=== PATIENT | female | born 1965 | race Caucasian/White ===

== ENCOUNTER 2016-10-11 02:59 | Inpatient (IN) | payer OTHER ==
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
--- NOTE | ~2016-10-11 | CR72 ---
[facility] A Service of [facility] & [facility] RADIOLOGY TEXT RESULTS PATIENT: LUANA GARCIA LOCATION: [facility] 321- : 63 UNIT #: [id number] AGE: [address]: Jing Orellana MD SEX: F ORDER DR: [id number] [facility] [address] [place], [place] [address] [id number] I MR#: [id number] Acc #: [id number] NAME: LUANA GARCIA : 1965 SEX: F STUDY DATE/TIME: 10/11/2016 03:03 UNIT: [address] ROOM: [facility] STUDY DESCRIPTION: CR Chest Single View Portable Attending Physician: Jing Orellana M.D. Ordering Physician: Arlen Casiano A.P.R.N. Primary Care Physician: Jeremy Benz M.D. MEDICAL IMAGING REPORT This report is preliminary unless electronic signature is present EXAM Portable chest, 10/05 at 03:03 INDICATION Slurred speech upon awakening this evening. History of smoking. FINDINGS AP portable chest is compared with 06/01/2016. The lungs are emphysematous but clear. Cardiac and mediastinal contours are normal. No pneumothorax. IMPRESSION Emphysema. No active disease. Dictated by... Kris Goldberg Jr., M.D. THIS IS AN ELECTRONICALLY VERIFIED REPORT Kris Goldberg Jr., M.D. at 10/11/2016 10:02 PM STIVEN/padmini TD: 10/11/2016 08:12 JOB #: [id number] MEDICAL IMAGING REPORT COPY
--- NOTE | ~2016-10-11 | A ---
[facility] Therapy DATE: 10/11/16 Patient: LUANA GARCIA Physician: CARMEN Address: [address] Room/Bed: [address] [place] [address], Zip: [place] [address] Admit Date: 10/11/16 Date of : [birth year] Height: 5 7 Weight: 98 44.45 NUTRITIONAL ASSESSMENT: REASON: Low BMI 51 yo female admitted for slurred speech, EtOH intoxication, hyponatremia PMH: HTN, BELKYS, COPD, GERD, esophageal stricture, pancreatitis, depression, ORIF, gastritis, Casillas's esophagus, EtOH abuse Anthropometrics: Ht: 67" Wt: 44.45 kg BMI: 15.3 IBW: 61.4 kg, 72% IBW Labs: Na+ 125 K+ 3.4 Cl- 88 Ca++ 6.3 AST 72 Amylase 193 Lipase 118 Meds: NaCl, thiamine, protonix, D5%, KCl, sodium bicarbonate, MVI I/O & Bowel function: none available Skin Integrity: information not available Edema: information not available Estimated Nutrition Needs: Increased due to low body weight Diet: Clear liquid Assessment: Chart reviewed, events noted. Pt admitted for slurred speech with elevated alcohol level upon admission. RD seeing pt for low BMI. RD spoke with the pt's RN, who reports that the pt was intoxicated upon admission and apparently failed a swallow evaluation. Per SEED COLLECTOR note in chart, the pt has a h/o esophageal dysphagia and SEED COLLECTOR deferred to GI consult due to this. Per GI note, the pt consumed alcohol last night, and feels like she has a "golfball" stuck. No n/v noted. GI ordered a clear liquid diet, and the pt will have an EGD tomorrow. RD spoke with the pt at bedside. Pt reports no PO intake x 2 weeks due to not being able to keep food down. Pt states that she has a good appetite, but cannot eat due to GI issues. Pt confirms that she has lost weight. Per previous weights in [employer], the pt weighed ~110# in May 2016, indicating ~12# weight loss since then. RD explained that diet advancement will depend upon EGD results. Pt voiced understand. Pt declined Ensure clear supplements, stating that she cannot drink juice. Of note, the pt has elevated amylase and lipase with a h/o pancreatitis. Dx: Inadequate oral intake RT dysphagia, GI issues AEB GI consult, clear liquid diet, SEED COLLECTOR evaluation, no oral intake x 2 weeks, BMI 15.3, 72% IBW. Intervention: [facility] Therapy DATE: 10/11/16 Patient: LUANA GARCIA Physician: CARMEN Address: [address] [place] [address] Room/Bed: [address] [place] [address], Zip: [place] [address] Admit Date: 10/11/16 Date of : 61 Height: 5 7 Weight: 98 44.45 1. Clear liquid diet 2. GI 3. SEED COLLECTOR Monitoring, Evaluation and Goals: 1. Oral intake; tolerate >50-75% of meals 2. Labs; WNL: amylase, lipase, electrolytes, AST 3. Weight; gradual increase in weight, prevent weight loss 4. GI; promote regular GI function Recommendations: 1. Continue clear liquid diet (per GI) as tolerated. 2. SEED COLLECTOR evaluation as deemed appropriate by GI. 3. Once medically feasible pending EGD results, advance the pt to a low fat diet as tolerated. ?Pancreatitis 4. Continue MVI with minerals + thiamine due to EtOH abuse. Pt is at mild-moderate nutritional risk. RD will follow hospital course. Respectfully, LUANA NEGRETE, ANGELITA, LD [employer] [facility] cc: client file
--- NOTE | ~2016-10-11 | OR ---
Unit #: [id number] #: [id number] Patient: LUANA GARCIA [id number] [address] [address] [id number] I MR#: [id number] NAME: LUANA GARCIA ROOM: 321 Date of Procedure: 10/12/2016 Admission Date: 10/11/2016 Surgeon: Jonathan Su M.D. : 1965 Attending Physician: Jing Orellana M.D. Primary Care Physician: Jeremy Benz M.D. OPERATIVE REPORT JOB NOTE: CC: PRIMARY CARE PHYSICIAN PROCEDURE PERFORMED Esophagogastroduodenoscopy with biopsies. INDICATIONS FOR PROCEDURE The patient with significant dysphagia, severe anemia, history of heavy alcoholism, undergoing evaluation with upper endoscopy. MEDICATIONS Monitored anesthesia. POSTOPERATIVE FINDINGS 1. Distal third of the esophagus shows tight stricture with circumferential ulceration. Minimal bleeding was seen as the scope passed through. 2. Mild gastritis. Biopsies taken. 3. Normal duodenum and distal duodenum. PLAN Aggressive PPI therapy. EGD with dilation after healing with aggressive PPI therapy. DESCRIPTION OF PROCEDURE The patient was explained of the procedure, risks, and benefits along with the risks and benefits of anesthesia. She was brought to the endoscopy room. Propofol anesthesia was given. Bite block was placed. The scope was passed down the mouth into the esophagus, stomach, duodenum, and distal duodenum. Findings as described. Biopsies taken in the antrum and body. Gently, the scope was pulled out. She tolerated it well. Dictated by... Montserrat Maki/neo TD: 10/12/2016 22:02 JOB #: [id number] Unit #: [id number] #: [id number] Patient: LUANA GARCIA OPERATIVE REPORT X Jonathan Su MD X PROCEDURE OPERATIVE NOTE
--- NOTE | ~2016-10-11 | EKG ---
PATIENT: LUANA GARCIA UNIT #: [id number] Ventricular Rate: 76 BPM Atrial Rate: 76 BPM P-R Interval: 166 ms QRS Duration: 80 ms Q-T Interval: 444 ms QTC Calculation(Bezet): 499 ms P Ilion: 102 degrees Calculated R Ilion: -9 degrees Calculated T Ilion: 61 degrees Diagnosis Line: Normal sinus rhythm Diagnosis Line: Cannot rule out Septal infarct (cited on or before Diagnosis Line: 01-JUN-2016) Baseline wander Nonspecific ST Diagnosis Line: abnormality Diagnosis Line: Borderline ECG Diagnosis Line: When compared with ECG of 01-JUN-2016 16:15, Diagnosis Line: Nonspecific T wave abnormality now evident in Diagnosis Line: Inferior leads Diagnosis Line: QT has lengthened Diagnosis Line: Confirmed by MANJU RODRÍGUEZ MD ([id number]) on 10/11/2016 Diagnosis Line: 5:45:45 PM INTERPRETING MD: MARCOS CAPPS
--- NOTE | ~2016-10-11 | EKG ---
PATIENT: LUANA GARCIA UNIT #: [id number] Ventricular Rate: 90 BPM Atrial Rate: 91 BPM QRS Duration: 72 ms Q-T Interval: 368 ms QTC Calculation(Bezet): 450 ms Calculated R [place]: -50 degrees Calculated T [place]: 53 degrees Diagnosis Line: Normal sinus rhythm Diagnosis Line: Left axis deviation Diagnosis Line: Septal infarct (cited on or before 01-JUN-2016) Diagnosis Line: Abnormal ECG Diagnosis Line: When compared with ECG of 11-OCT-2016 02:43, Diagnosis Line: Current undetermined rhythm precludes rhythm Diagnosis Line: comparison, needs review Diagnosis Line: QRS axis Shifted left Diagnosis Line: Nonspecific T wave abnormality no longer evident Diagnosis Line: in Inferior leads Diagnosis Line: Confirmed by HARRY PINO MD ([id number]) on Diagnosis Line: 10/15/2016 12:00:20 AM INTERPRETING MD: ODETTE CAPPS
--- NOTE | ~2016-10-11 | DS ---
Unit #: [id number] #: [id number] Patient: LUANA GARCIA [id number] [address] [address] [id number] I MR#: [id number] NAME: LUANA GARCIA ROOM: 321 Age: 51 Sex: F Admission Date: 10/11/2016 : 1965 Discharge Date: 10/13/2016 Attending Physician: Jing Orellana M.D. Primary Care Physician: Jeremy Benz M.D. DISCHARGE SUMMARY DISCHARGE DIAGNOSES 1. Mild upper gastrointestinal bleed secondary to number 2. 2. Severe ulcerative esophagitis with associated esophageal stricture. 3. Hypovolemic hyponatremia, resolved. 4. Mild acute blood loss anemia. Discharge hemoglobin 8. 5. Severe hypocalcemia. 6. Hypomagnesemia. 7. Hypophosphatemia. 8. Acute alcohol intoxication without evidence of withdrawal. 9. Thrombocytopenia. 10. Mild leukopenia. Discharge white blood cell count 3.9. 11. Severe protein malnutrition. 12. Underweight. 13. Chronic obstructive pulmonary disease. 14. Tobaccoism. 15. Prior history of hypertension. Blood pressure stable here off of antihypertensive medication. 16. Severe metabolic acidosis secondary to alcoholic ketosis and starvation ketosis. FENDER REPAIRER Dr. Su, gastroenterology. PROCEDURE EGD on October 12, 2016 with severe ulcerative esophagitis and stricture. Minimal amount of bleeding noted. Biopsy is currently pending. DIAGNOSTIC STUDIES IMAGING: CT of the head without contrast on October 11, 2016 with no acute findings. Atrophy is noted. Chest x-ray on October 11, 2016 with changes of emphysema. CLINICAL HISTORY AND HOSPITAL COURSE Ms. Garcia is a 51-year-old female with a history of severe esophagitis and prior esophageal stricture requiring dilatation who presented to the emergency department unable to eat and complaining of abdominal pain. She was also having slurred speech upon presentation. Please refer to H and P for further details. In the emergency department the patient was found to be acutely intoxicated with an alcohol level of 395. She also had several electrolyte abnormalities and a severe metabolic acidosis secondary to a combination of alcoholic ketosis and starvation ketosis. She was placed Unit #: [id number] #: [id number] Patient: LUANA GARCIA on IV fluids containing bicarbonate, made NPO and subsequently admitted. Dr. Su was consulted. The patient subsequently underwent EGD with findings as noted. She was placed on PPI drip following the procedure and today is eating without difficulty following her dilatation. I will note her hemoglobin did drop rather significantly since admission. Her admitting hemoglobin was 12.3, and on day of discharge hemoglobin is 8. I suspect this drop is secondary to both some significant dehydration and subsequent dilution, in addition to some upper GI bleed. However, her hemoglobin overall is relatively stable over the last 48 hours. Will placed on PPI therapy b.i.d. and follow up with Dr. Su as an outpatient. Due to the patient's poor nutritional status, she has had significant electrolyte abnormalities, including recurrent hypocalcemia, hypomagnesemia and hypophosphatemia. I anticipate these will improve as oral intake improves, but I am going to place her on some supplementation upon discharge. She has not had any arrhythmia secondary to her electrolyte abnormalities. The patient does have mild pancytopenia on day of discharge, and this is likely a combination of her alcohol use and her current illness. This can be followed up as an outpatient. I have discussed tobacco and alcohol cessation with the patient given these are contributing to her underlying significant esophagitis. DISCHARGE CONDITION Stable. DISCHARGE STATUS Discharge to home. DISCHARGE MEDICATIONS 1. ProAir RespiClick 2 puffs q.4 hours p.r.n. shortness of breath. 2. Pred Forte 1 drop to right eye at bedtime. 3. Atropine 1% ophthalmic solution 1 drop to right eye at bedtime. 4. Hydroxyzine 50 mg at bedtime. 5. Dulera 200/5 mcg 2 puffs b.i.d. 6. Protonix 40 mg b.i.d. (1 refill given). 7. Magnesium oxide 400 mg p.o. b.i.d. for 15 days. 8. Citracal plus vitamin D 1 tablet p.o. b.i.d. This can be purchased over the counter. 9. I have held the patient's lisinopril given blood pressure here has been in the one-teens to mid 120s off of antihypertensive medications. DISCHARGE INSTRUCTIONS Patient was instructed to refrain from any further alcohol use. She should refrain from tobacco use. She can follow a regular diet and needs to increase her caloric intake. FOLLOW-UP 1. Patient will follow up with Dr. Su in approximately 2-3 months for repeat EGD. 2. She can follow up with her primary care provider, Dr. Benz, in approximately 2 weeks and repeat CBC, BMP and magnesium levels at that time. NOTE: Time spent on discharge - 34 minutes. Unit #: [id number] #: [id number] Patient: LUANA GARCIA Dictated by... Montserrat Khan/sebastian TD: 10/15/2016 08:37 JOB #: [id number] DISCHARGE SUMMARY X Jing Orellana MD X DISCHARGE SUMMARY
--- NOTE | ~2016-10-11 | CO ---
Unit #: [id number] #: [id number] Patient: LUANA GARCIA [id number] [address] [address] [id number] I MR#: [id number] NAME: LUANA GARCIA ROOM: 321 Age: 51 Sex: F Admission Date: 10/11/2016 : 1965 Attending Physician: Jing Orellana M.D. Primary Care Physician: Jeremy Benz M.D. CONSULTATION REPORT REASON FOR CONSULTATION Dysphagia. HISTORY OF PRESENT ILLNESS The patient was actually brought to ER after having several drinks of bourbon as they were watching October basketball with her boyfriend. She was found in the ER to be hyponatremic as well as experiencing dysphagia, worsening over the past several weeks. At this time, she denies any abdominal pain, nausea, vomiting, heartburn, chest pain. PAST MEDICAL HISTORY 1. History of alcohol abuse with pancreatitis. 2. COPD. 3. History of GERD with esophageal stricture. She had three EGDs in 2016 revealing Casillas's esophageal ulcers as well as strictures requiring dilation. 4. . 5. Tonsillectomy. 6. Right eye surgery. 7. Jaw surgery. 8. Right oophorectomy. 9. ORIF of the left wrist and right ankle. ALLERGIES Penicillin. HOME MEDICATIONS 1. Protonix. 2. Prinivil. 3. Atarax. 4. ProAir. 5. Dulera. 6. Atropine, one drop in the eye. 7. Prednisolone, one drop in the right eye. FAMILY HISTORY Notable for coronary artery disease. SOCIAL HISTORY The patient drinks bourbon. She only drinks when there is a special occasion and not on a daily basis. She smokes about a half pack of cigarettes daily and lives with boyfriend. REVIEW OF SYSTEMS Unit #: [id number] #: [id number] Patient: LUANA GARCIA A complete ten point review of systems was completed and negative except for that mentioned in HPI. PHYSICAL EXAMINATION GENERAL: The patient is a pleasant 51-year-old male, currently in no acute distress. VITAL SIGNS: Temperature is 98.3, pulse is 100, respirations 16, blood pressure 119/81. HEENT: PERRLA. NECK: Supple. CARDIAC: S1, S2. LUNGS: Clear to auscultation. ABDOMEN: Soft, rounded, nontender, nondistended. Positive bowel sounds. NEUROLOGICAL: The patient is alert and oriented x3. DIAGNOSTIC STUDIES LABORATORY DATE: Chemistry - sodium is 125, potassium 3.4, white count 6.6, hemoglobin 10.5, hematocrit 30.2, platelets are 143. Alcohol on admission was 395. Tox was negative. ASSESSMENT AND PLAN 1. Dysphagia, history of esophageal stricture: PPI therapy for now. Will plan EGD in the morning with possible dilation due to previous stricture. 2. Alcohol intoxication on arrival. 3. Chronic obstructive pulmonary disease. Thank you for this interesting consult. We will continue to follow. Dictated by... Shiva De La RosaPDameonRDameonN. for Jonathan Su M.D. JOSE/nell TD: 10/12/2016 08:09 JOB #: [id number] CONSULTATION REPORT X X CONSULTATION REPORT
[~2016-10-11 02:59] MED LIST: ALB/IPRATROPIUM/1 EA INH; ALBUTEROL17 GM; ALBUTEROL17 GM INH; ASPIRIN PO; ASPIRIN325 M1 PO; ASPIRIN81 M1 PO; ATIVAN PO; ATROPINE SULFAT15 ML OD; DARVOCET-N 1001 TAB PO; DOXYCYCLINE HY100 M1 PO; DULERA 200 MCG/13 GM INH; FOLIC ACID PO; HYDROXYZINE HCL50 MG PO; IBUPROFEN IB200 M1 PO; IBUPROFEN800 MG PO; KETOPROFEN PO; LIBRIUM PO; LISINOPRIL20 MG PO; LORTAB 10/500 T1 TAB PO; LORTAB 7.5-5001 TAB PO; MULTIVITAMIN W-1 TAB PO; MULTIVITAMIN1 UDCAP PO; NON-ASPIRIN PA325 M1 PO; OMEPRAZOLE20 M1 PO; OXYGEN INH; PANTOPRAZOLE SO40 MG PO; PEPCID AC20 MG PO; PHENERGAN25 MG PO; PREDNISOLONE SO10 ML OD; PRILOSEC PO; PRINIVIL20 M1 PO; PROAIR HFA8.5 GM INH; PROAIR RESPICL90 MCG INH; PROTONIX PO; THIAMINE HCL100 MG PO; TRAVATAN2.5 ML OD; ULTRAM PO; VICODIN 5/1 TAB 5/50 PO; ZOLOFT100 MG PO
[2016-10-11 03:06] LABS: URINE SOURCE CLEAN CATCH
[2016-10-11 03:11] LABS: POC - CKMB 2.3 ng/mL (0.0-7.9); POC - TROPONIN <0.05 ng/mL (<=0.05)
[2016-10-11 03:11] LABS: BASOPHIL% 0.5 % (0-2.5); DIFF IND NO; EOSINOPHIL% 0.1 % (0.0-7.0); HEMATOCRIT 37.3 % (35.0-45.0); HEMOGLOBIN 12.3 gm/dL (12.0-16.0); LYMPHOCYTE# 0.7 X10e3 (1.0-3.5); LYMPHOCYTE% 10.7 % (17.0-45.0); MEAN CELL VOLUME 102.4 FL (83-96); MEAN CORPUSCULAR HEMOGLOBIN 33.9 PG (28-34); MEAN CORPUSCULAR HGB CONC 33.1 g/dL (30-36); MEAN PLATELET VOLUME 10.1 FL (6.5-11.5); MONOCYTE# 0.3 X10e3 (0-1.0); MONOCYTE% 4.8 % (3.0-12.0); NEUTROPHIL# 5.3 X10e3 (1.5-7.1); NEUTROPHIL% 83.9 % (40-75); PLATELET COUNT 159 X10e3 (140-420); RED BLOOD COUNT 3.64 X10e (3.90-5.30); RED CELL DISTRIBUTION WIDTH 14.7 % (11.0-15.5); WHITE BLOOD COUNT 6.4 X10e3 (4.0-10.5)
[2016-10-11 03:13] LABS: URINE APPEARANCE CLEAR; URINE BILIRUBIN NEG (NEG); URINE BLOOD NEG (NEG); URINE COLOR YELLOW; URINE GLUCOSE NEG (NEG); URINE KETONE 2+ (NEG); URINE LEUKOCYTE ESTERASE NEG (NEG); URINE NITRATE NEG (NEG); URINE PROTEIN NEG (NEG); URINE SPECIFIC GRAVITY 1.012 (1.003-1.035)
[2016-10-11 03:16] LABS: CULTURE INDICATED? NO
[2016-10-11 03:23] LABS: AMPHETAMINE NEG (NEG); BARBITURATES NEG (NEG); BENZODIAZEPINES NEG (NEG); COCAINE NEG (NEG); MARIJUANA NEG (NEG); OPIATES NEG (NEG); TRICYCLIC ANTIDEPRESSANTS NEG (NEG); U METHADONE NEG (NEG)
[2016-10-11 03:52] LABS: INR 1.1; PARTIAL THROMBOPLASTIN TIME 31.5 SECONDS (23.5-31.3); PROTHROMBIN TIME (PATIENT) 11.4 SECONDS (9.6-11.5)
[2016-10-11 04:00] LABS: BILIRUBIN, DIRECT 0.2 mg/dL (0.0-0.2); BILIRUBIN,INDIRECT 0.8 mg/dL (0.0-0.9); BUN/CREATININE RATIO 21.81; CALCIUM SERUM 6.6 mg/dL (8.4-10.2); CREATININE SERUM 1.1 mg/dL (0.6-1.4); GLOM FILT RATE Estimated 55.2 mL/min (>60); POTASSIUM 3.6 mmol/L (3.5-5.1); PROTEIN TOTAL SERUM 7.8 g/dL (6.0-8.3)
[2016-10-11 04:47] LABS: ARTERIAL BLD GAS O2 SATURATION 95.1 % (90.0-100.0); ARTERIAL BLOOD GAS CARBOXY HB 0.6 %sat (0.0-9.0); ARTERIAL BLOOD GAS HCO3 9.3 mmol/L; ARTERIAL BLOOD GAS MET HB 1.2 %sat (0.0-2.0); ARTERIAL BLOOD GAS PO2 97.8 mmHg (80.0-100); ARTERIAL BLOOD GAS pH 7.389 (7.350-7.450)
[2016-10-11 04:49] LABS: ARTERIAL BLOOD GAS ART SITE RIGHT BRACHIAL; ARTERIAL BLOOD GAS PCO2 15.4 mmHg (35.0-45.0); ARTERIAL DRAW? YES
[2016-10-11 05:05] LABS: POC - CKMB 3.6 ng/mL (0.0-7.9); POC - TROPONIN <0.05 ng/mL (<=0.05)
[2016-10-11 12:21] LABS: BASOPHIL% 0.7 % (0-2.5); EOSINOPHIL% 0.4 % (0.0-7.0); HEMATOCRIT 30.2 % (35.0-45.0); LYMPHOCYTE# 1.6 X10e3 (1.0-3.5); LYMPHOCYTE% 24.4 % (17.0-45.0); MEAN CORPUSCULAR HEMOGLOBIN 34.5 PG (28-34); MEAN CORPUSCULAR HGB CONC 34.9 g/dL (30-36); MEAN PLATELET VOLUME 9.7 FL (6.5-11.5); MONOCYTE# 0.4 X10e3 (0-1.0); MONOCYTE% 5.8 % (3.0-12.0); NEUTROPHIL# 4.5 X10e3 (1.5-7.1); NEUTROPHIL% 68.7 % (40-75); PLATELET COUNT 143 X10e3 (140-420); RED BLOOD COUNT 3.04 X10e (3.90-5.30); RED CELL DISTRIBUTION WIDTH 14.6 % (11.0-15.5); WHITE BLOOD COUNT 6.6 X10e3 (4.0-10.5)
[2016-10-11 12:25] LABS: MEAN CELL VOLUME 99.1 FL (83-96)
[2016-10-11 12:27] LABS: HEMOGLOBIN 10.5 gm/dL (12.0-16.0)
[2016-10-11 12:28] LABS: DIFF IND NO
[2016-10-11 13:00] LABS: BLOOD UREA NITROGEN 19 mg/dL (9-23); BUN/CREATININE RATIO 21.11; CALCIUM SERUM 6.3 mg/dL (8.4-10.2); CARBON DIOXIDE 21 mmol/L (22-31); CHLORIDE 88 mmol/L (100-111); CREATININE SERUM 0.9 mg/dL (0.6-1.4); GLOM FILT RATE Estimated ABOVE60 mL/min (>60); GLUCOSE FASTING 92 mg/dL (70-110); POTASSIUM 3.4 mmol/L (3.5-5.1)
[2016-10-11 13:01] LABS: SODIUM 125 mmol/L (135-145)
[2016-10-11 19:59] LABS: BLOOD UREA NITROGEN 17 mg/dL (9-23); BUN/CREATININE RATIO 24.28; CALCIUM SERUM 6.8 mg/dL (8.4-10.2); CARBON DIOXIDE 24 mmol/L (22-31); CHLORIDE 89 mmol/L (100-111); CREATININE SERUM 0.7 mg/dL (0.6-1.4); GLOM FILT RATE Estimated ABOVE60 mL/min (>60); GLUCOSE FASTING 91 mg/dL (70-110); POTASSIUM 3.5 mmol/L (3.5-5.1); SODIUM 126 mmol/L (135-145)
[2016-10-11 20:03] LABS: MAGNESIUM 0.4 mg/dL (1.6-3.0)
[2016-10-12 01:47] LABS: ALBUMIN SERUM 3.1 g/dL (3.5-5.0); ALKALINE PHOSPHATASE 55 U/L (32-92); ALT (SGPT) 16 U/L (10-40); AST (SGOT) 29 U/L (10-42); BILIRUBIN,TOTAL 1.3 mg/dL (0.2-2.0); BLOOD UREA NITROGEN 15 mg/dL (9-23); BUN/CREATININE RATIO 18.75; CALCIUM SERUM 6.7 mg/dL (8.4-10.2); CARBON DIOXIDE 26 mmol/L (22-31); CHLORIDE 91 mmol/L (100-111); CREATININE SERUM 0.8 mg/dL (0.6-1.4); GLOM FILT RATE Estimated ABOVE60 mL/min (>60); GLUCOSE FASTING 123 mg/dL (70-110); POTASSIUM 3.1 mmol/L (3.5-5.1); PROTEIN TOTAL SERUM 5.9 g/dL (6.0-8.3)
[2016-10-12 01:53] LABS: SODIUM 125 mmol/L (135-145)
[2016-10-12 06:26] LABS: HEMATOCRIT 24.8 % (35.0-45.0); HEMOGLOBIN 8.6 gm/dL (12.0-16.0); MEAN CELL VOLUME 100.6 FL (83-96); MEAN CORPUSCULAR HGB CONC 34.8 g/dL (30-36); MEAN PLATELET VOLUME 10.1 FL (6.5-11.5); RED BLOOD COUNT 2.46 X10e (3.90-5.30); RED CELL DISTRIBUTION WIDTH 14.8 % (11.0-15.5); WHITE BLOOD COUNT 4.4 X10e3 (4.0-10.5)
[2016-10-12 06:51] LABS: ALBUMIN SERUM 2.9 g/dL (3.5-5.0); ALKALINE PHOSPHATASE 55 U/L (32-92); ALT (SGPT) 15 U/L (10-40); AST (SGOT) 27 U/L (10-42); BILIRUBIN,TOTAL 0.6 mg/dL (0.2-2.0); BLOOD UREA NITROGEN 13 mg/dL (9-23); BUN/CREATININE RATIO 16.25; CALCIUM SERUM 6.7 mg/dL (8.4-10.2); CARBON DIOXIDE 25 mmol/L (22-31); CHLORIDE 92 mmol/L (100-111); CREATININE SERUM 0.8 mg/dL (0.6-1.4); GLOM FILT RATE Estimated ABOVE60 mL/min (>60); GLUCOSE FASTING 113 mg/dL (70-110); MAGNESIUM 1.8 mg/dL (1.6-3.0); POTASSIUM 3.7 mmol/L (3.5-5.1); PROTEIN TOTAL SERUM 5.4 g/dL (6.0-8.3); SODIUM 128 mmol/L (135-145)
[2016-10-12 11:46] LABS: MAGNESIUM 1.5 mg/dL (1.6-3.0); POTASSIUM 4.2 mmol/L (3.5-5.1)
[2016-10-12 17:41] LABS: IRON SERUM 41 ug/dL (28-170); TOTAL IRON BINDING CAPACITY 163 ug/dL (269-535); TRANSFERRIN 116 mg/dL (192-382); TRANSFERRIN SATURATION 25 % (20-50)
[2016-10-13 05:59] LABS: HEMATOCRIT 24.1 % (35.0-45.0); MEAN CELL VOLUME 101.6 FL (83-96); MEAN CORPUSCULAR HEMOGLOBIN 33.8 PG (28-34); MEAN CORPUSCULAR HGB CONC 33.2 g/dL (30-36); MEAN PLATELET VOLUME 10.2 FL (6.5-11.5); RED BLOOD COUNT 2.37 X10e (3.90-5.30); RED CELL DISTRIBUTION WIDTH 14.7 % (11.0-15.5); WHITE BLOOD COUNT 3.9 X10e3 (4.0-10.5)
[2016-10-13 06:15] LABS: ALBUMIN SERUM 2.7 g/dL (3.5-5.0); ALKALINE PHOSPHATASE 54 U/L (32-92); ALT (SGPT) 13 U/L (10-40); AST (SGOT) 24 U/L (10-42); BILIRUBIN,TOTAL 0.8 mg/dL (0.2-2.0); BLOOD UREA NITROGEN 9 mg/dL (9-23); BUN/CREATININE RATIO 12.85; CALCIUM SERUM 7.3 mg/dL (8.4-10.2); CARBON DIOXIDE 24 mmol/L (22-31); CHLORIDE 100 mmol/L (100-111); CREATININE SERUM 0.7 mg/dL (0.6-1.4); GLOM FILT RATE Estimated ABOVE60 mL/min (>60); GLUCOSE FASTING 86 mg/dL (70-110); PHOSPHOROUS 2.7 mg/dL (2.5-4.6); POTASSIUM 4.3 mmol/L (3.5-5.1); PROTEIN TOTAL SERUM 5.1 g/dL (6.0-8.3); SODIUM 130 mmol/L (135-145)
[2016-10-13] MEDS ORDERED: MAGNESIUM400 M1 (12:15)
[2016-10-13] MEDS ORDERED: PRED FORTE1 ML OD (12:16)
[2016-10-13] MEDS ORDERED: ISOPTO ATROPINE5 ML OD (12:17)
[2016-10-13] MEDS ORDERED: CITRACAL-VIT D1 EAC1 PO (12:21)
[2016-10-18 09:30] LABS: CALCIUM (PTHINTACT) 7.4 mg/dL (8.6-10.4)
== END 2016-10-13 13:02 | disposition home or self-care (01) | DRG 640 ==
LOC: CED 02:59 → CEDOF 04:50 → C3A PCU 08:11
PROVIDERS: Internal Medicine; Nurse Practitioner
PROC: 0DB78ZX Excision of Stomach, Pylorus, Via Natural or Artificial Opening Endoscopic, Diagnostic (ICD-10-PCS; principal; 2016-10-12 15:35)
DX: E87.1 Hypo-osmolality and hyponatremia (principal); K22.11 Ulcer of esophagus with bleeding; E86.0 Dehydration; E43 Unspecified severe protein-calorie malnutrition; E87.2 Acidosis; E88.89 Other specified metabolic disorders; D62 Acute posthemorrhagic anemia; D69.59 Other secondary thrombocytopenia; Z68.1 Body mass index [BMI] 19.9 or less, adult; Z88.0 Allergy status to penicillin; I10 Essential (primary) hypertension; J44.9 Chronic obstructive pulmonary disease, unspecified; K21.9 Gastro-esophageal reflux disease without esophagitis; Z82.49 Family history of ischemic heart disease and other diseases of the circulatory system; Y90.8 Blood alcohol level of 240 mg/100 ml or more; H54.41 Blindness, right eye, normal vision left eye; F17.210 Nicotine dependence, cigarettes, uncomplicated; K22.2 Esophageal obstruction; E83.51 Hypocalcemia; E83.42 Hypomagnesemia; E83.39 Other disorders of phosphorus metabolism; F10.229 Alcohol dependence with intoxication, unspecified; K29.70 Gastritis, unspecified, without bleeding
CPT/HCPCS: 36415; 36600; 70450; 71010; 80048; 80053; 80076; 80307; 81003; 82140; 82150; 82310; 82330; 82553; 82607; 82803; 82947; 83540; 83550; 83690; 83735; 83930; 83970; 84100; 84132; 84134; 84484; 85025; 85027; 85610; 85730; 88305; 88312; 93005; 94640; 94760; 99285; C9113; G0480; J0360; J0610; J2270; J3411; J3475; J3480

== ENCOUNTER → 2016-11-04 | Outpatient (CLI) | payer OTHER ==
[~2016-11-04] MED LIST changes: +ATROPINE 0.01%-10 ML OD; +CALCIUM 500 +1 EAC3 PO; +CITRACAL-VIT D1 EAC1 PO; +FOLIC ACID1 MG PO; +INDOMETHACIN50 MG PO; +ISOPTO ATROPINE5 ML OD; +LEVAQUIN PO; +MAG-OX 400400 M1 PO; +MAGNESIUM400 M1; +MULTIVITAMINS1 EAC2 PO; +POTASSIUM PHOS MC; +PRED FORTE1 ML OD; +PREDNISONE10 M1
--- NOTE | ~2016-11-04 | CR21 ---
[facility] A Service of [facility] RADIOLOGY TEXT RESULTS PATIENT: LUANA GARCIA LOCATION: [facility] : [birth year] UNIT #: [id number] AGE: [address]: Liberty Starr MD SEX: F ORDER DR: [id number] [facility] [address] [place], [place] [address] [id number] O MR#: [id number] Acc #: [id number] NAME: LUANA GARCIA : 1965 SEX: F STUDY DATE/TIME: 11/04/2016 12:25 UNIT: [facility] ROOM: STUDY DESCRIPTION: CR Ankle Min 3 Views Rt Attending Physician: Liberty Starr M.D. Ordering Physician: Liberty Starr M.D. Primary Care Physician: Jeremy Benz M.D. MEDICAL IMAGING REPORT This report is preliminary unless electronic signature is present EXAM Right ankle INDICATIONS Right ankle pain. Prior right ankle fracture. FINDINGS 3 views of the right ankle compared to 08/25/2016. The medial plate and multiple screws transfixing the comminuted ankle fracture are unchanged in appearance. The fracture plane is less visible on today's exam, indicating some interval healing. There is some periosteal reaction around the fracture. There is some bridging callus across the distal fibular fracture. There is generalized osteopenia at the ankle. IMPRESSION Interval healing of the comminuted distal tibia and fibular fractures. Dictated by... Miguel Angel Farley M.D. THIS IS AN ELECTRONICALLY VERIFIED REPORT Miguel Angel Farley M.D. at 11/05/2016 2:12 PM Roni/yaima TD: 11/04/2016 19:20 JOB #: [id number] MEDICAL IMAGING REPORT Page 1 of 1 COPY
== END | disposition home or self-care (01) ==
LOC: CRAD 12:15
DX: M25.571 Pain in right ankle and joints of right foot (principal); S82.301D Unspecified fracture of lower end of right tibia, subsequent encounter for closed fracture with routine healing; S82.831D Other fracture of upper and lower end of right fibula, subsequent encounter for closed fracture with routine healing
CPT/HCPCS: 73610

== ENCOUNTER 2016-12-22 11:13 | Inpatient (IN) | payer OTHER ==
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
--- NOTE | ~2016-12-22 | DS ---
Unit #: [id number] #: [id number] Patient: LUANA GARCIA [id number] [address] [address] [id number] I MR#: [id number] NAME: LUANA GARCIA ROOM: 330 Age: 51 Sex: F Admission Date: 12/22/2016 : 1965 Discharge Date: 12/25/2016 Attending Physician: Jing Orellana M.D. Primary Care Physician: Jeremy Benz M.D. DISCHARGE SUMMARY PRINCIPAL DIAGNOSES 1. Hypotension secondary to dehydration in combination with chronic antihypertensive medication. 2. Severe starvation ketosis. 3. Acute kidney injury, prerenal, now resolved. Discharge creatinine 0.8. 4. Severe hypocalcemia. 5. Severe hypomagnesemia. 6. Severe hypophosphatemia. 7. Hypokalemia, now resolved. 8. Severe protein malnutrition. 9. Chronic alcohol abuse without evidence of withdrawal. 10. Macrocytic anemia, secondary to chronic alcohol abuse in combination with folate deficiency. Vitamin B12 level 584. 11. Acute hypoxic respiratory failure, now resolved. 12. Acute exacerbation of chronic obstructive pulmonary disease. 13. Underweight. 14. Mild memory loss, question alcohol induced. 15. Ulcerative esophagitis. 16. Tobaccoism. CONSULTANTS Dr. Stuart, pulmonology. DIAGNOSTIC DATA IMAGING: Chest x-ray on 12/22/2016 with no acute findings[address] CT of the head without contrast on 12/22/2016 with metallic streak artifact from shrapnel fragment right frontal region. Chest x-ray on 12/23/2016 with no acute findings. CLINICAL HISTORY/HOSPITAL COURSE Ms. Garcia is a 51-year-old female brought to the emergency department by family after not eating and drinking for approximately 4 days. The patient was also increasingly confused. In the emergency department the patient was found to be mildly hypoxic. She was also acidotic with a significant high anion gap metabolic acidosis on BMP. She was also hypotensive. The patient was subsequently admitted. Dr. Stuart was consulted upon admission to the ICU. The patient was maintained on oxygen in addition to IV fluids and discontinuation of her lisinopril. Fortunately, the patient's blood pressure improved rather rapidly. Blood pressures now are running in the 110s and I do not feel Unit #: [id number] #: [id number] Patient: LUANA GARCIA she needs lisinopril at baseline. We are going to discontinue this. In regard to the patient's severe ketosis, I think this is likely starvation induced. Her alcohol level was normal upon presentation and she had no evidence of hyperglycemia, at least initially upon presentation. On D5 fluids her anion gap has resolved. In regard to the patient's mild hypoxia, this is felt to be secondary to a chronic obstructive pulmonary disease exacerbation. The patient was placed on IV steroids and antibiotics. She has now been transitioned to oral steroids and oral antibiotics. The patient was also found to have an e-coli urinary tract infection and we will complete with a course of antibiotics as noted. The patient had multiple significant electrolyte abnormalities, which she has also had in the past due to her poor solute intake. She was given both IV and oral supplementation and on the day of discharge she still remains mildly hypocalcemic and hypophosphatemic, but she is not having any significant muscle twitching nor is she having any cardiac irregularities. Will continue to replace with supplements as an outpatient. I have encouraged her to stop drinking. The patient was seen by physical therapy, who suggested inpatient physical rehab. The patient is adamantly refusing. I am still allowing the patient and her father another few hours to discuss in depth, but if the patient continues to refuse I think she can be discharged home. DISCHARGE CONDITION Stable. DISPOSITION Discharge to home. DISCHARGE MEDICATIONS 1. ProAir Respiclick 2 puffs b.i.d. p.r.n. shortness of breath. 2. Prednisone 10 mg tablets, 2 tablets for 2 days, 1 tablet for 2 days, then discontinue. 3. Levaquin 500 mg p.o. daily for 4 days. 4. Phosmet packet, 2 packets p.o. b.i.d. with quantity sufficient for 2 weeks. 5. Folate 1 mg daily for 1 month. 6. Magnesium oxide 400 mg p.o. b.i.d. for 1 month. 7. Atropine eyedrops 1 drop to right eye b.i.d. 8. Pantoprazole 40 mg b.i.d. 9. Os-Carlos 500 plus D 1 b.i.d., which she can purchase over the counter. DIET The patient is instructed to follow a regular diet. ACTIVITY She can increase as tolerated under the care of physical therapy and occupational therapy. I will arrange home health if the patient continues to refuse rehab. FOLLOWUP 1. The patient needs a follow-up BMP, magnesium and phosphorus in one week. These results can be faxed to my office if done at our Unit #: [id number] #: [id number] Patient: LUANA GARCIA outpatient lab. 2. Follow up with primary care physician, Dr. Benz, in two weeks. Time spent on discharge 39 minutes. Dictated by... Jing Orellana M.D. WEI/jazmín TD: 12/26/2016 08:24 JOB #: [id number] DISCHARGE SUMMARY Page 1 of 1 X Jing Orellana MD X DISCHARGE SUMMARY
--- NOTE | ~2016-12-22 | CR72 ---
[facility] A Service of [facility] RADIOLOGY TEXT RESULTS PATIENT: LUANA GARCIA LOCATION: [facility] : 61 UNIT #: [id number] AGE: [address]: Jing Orellana MD SEX: F ORDER DR: [id number] [facility] [address] [place], [place] [address] [id number] P MR#: [id number] Acc #: [id number] NAME: LUANA GARCIA : 1965 SEX: F STUDY DATE/TIME: 12/22/2016 11:52 UNIT: [facility] ROOM: STUDY DESCRIPTION: CR Chest Single View Portable Attending Physician: Dexter Berry D.O. Ordering Physician: Dexter Berry D.O. Primary Care Physician: Jeremy Benz M.D. MEDICAL IMAGING REPORT This report is preliminary unless electronic signature is present EXAM Portable chest, 12/22/2016. HISTORY 51-year-old female with altered mental status today. Hypotension. Congestion. COMPARISON Chest, 10/11/2016. FINDINGS 2 frontal views of the chest demonstrate clear lungs. No pleural effusion or pneumothorax. Heart size and mediastinum are normal. Pulmonary vasculature normal. IMPRESSION No acute cardiopulmonary findings. Dictated by... Anjel Kerr M.D. THIS IS AN ELECTRONICALLY VERIFIED REPORT Anjel Kerr M.D. at 12/23/2016 6:23 AM BRADLEY/marilu TD: 12/22/2016 12:38 JOB #: [id number] MEDICAL IMAGING REPORT Page 1 of 1 COPY
--- NOTE | ~2016-12-22 | CR72 ---
[facility] A Service of [facility] RADIOLOGY TEXT RESULTS PATIENT: LUANA GARCIA LOCATION: [address] : [birth year] UNIT #: [id number] AGE: [address]: Jing Orellana MD SEX: F ORDER DR: [id number] [facility] [address] [place], [place] [address] [id number] I MR#: [id number] Acc #: [id number] NAME: LUANA GARCIA : 1965 SEX: F STUDY DATE/TIME: 12/23/2016 9:50 UNIT: [facility] ROOM: [facility] STUDY DESCRIPTION: CR Chest Single View Portable Attending Physician: Jing Orellana M.D. Ordering Physician: Aracely Stuart M.D. Primary Care Physician: Jeremy Benz M.D. MEDICAL IMAGING REPORT This report is preliminary unless electronic signature is present EXAM Portable chest. HISTORY Weakness and shortness of breath over the past week. COMPARISON 12/22/2016 TECHNIQUE Single view of the chest was obtained. FINDINGS The patient is rotated to the right. Both lungs are clear with normal vascular markings. The heart and mediastinum are stable. No change from the previous exam. IMPRESSION No active disease. Lungs clear. STAT * RESULT Dictated by... Kris Rizo M.D. THIS IS AN ELECTRONICALLY VERIFIED REPORT Kris Rizo M.D. at 12/23/2016 12:13 PM RLF/marilu TD: 12/23/2016 10:04 JOB #: [id number] [facility] A Service of [facility] RADIOLOGY TEXT RESULTS PATIENT: LUANA GARCIA LOCATION: [address] : [birth year] UNIT #: [id number] AGE: [address]: Jing Orellana MD SEX: F ORDER DR: MEDICAL IMAGING REPORT Page 1 of 1 COPY
--- NOTE | ~2016-12-22 | A ---
[facility] Therapy DATE: 12/24/16 Patient: LUANA GARCIA Physician: GREGORIA Address: [address] Room/Bed: [address] [place] [address], Zip: [place] [address] Admit Date: 12/22/16 Date of : [birth year] Height: 5 8 Weight: 123 56 NUTRITIONAL ASSESSMENT: REASON: Seen due to low BMI, 1 point malnutrition risk score re: eating poorly, consult re: "Needs" Admitting Dx: 51 y/o female admitted with alcohol ketoacidosis, AMS, hypoxia, TOM PMH: Smoker (5 per day), HTN, GERD, COPD, BELKYS, ETOH abuse (bourbon, states not everyday), ORIF ankle/wrist, depression, esophageal stricture, pancreatitis, Casillas's esophagus, hyponatremia Anthropometrics: Ht: 68", Wt: 123 lbs, BMI: 18 (underweight), UBW: 125 lbs Labs: Glucose 283, Mg 1.2, Phos 0.6, Na/K WNL Meds: Therapeutic formula, Thiamine, Folic acid, Levaquin, Prednisone, PPI, Phos-nak, Os-Carlos 500 + D, Kcl, Nacl, MgSO4 I/O & Bowel function: Last BM 12/24 Skin Integrity: No issues documented, no edema Assessment: Chart reviewed, events noted. Patient lives with her boyfriend, drinks bourbon but not daily per patient. See admitting dx and PMH as stated above. CT/CXR negative however MD reports acute bronchitis/COPD exacerbation. Upon admission the patient stated she has not had alcohol for a few days, which blood tests confirmed. She is on K/Mg protocol. She is a poor historian however is able to answer questions appropriately. She is on a healthy heart diet with vanilla Ensure ordered TID. She reports an unknown amount of weight loss following surgery on her ankle/wrist in May of last year, unable to state lowest body weight, past weights in October of this year range from 97-102 lbs. States UBW is 125 lbs and current weight is 123 lbs, she confirms weight gain recently and was happy about this weight, however she is still clinically underweight. She does drink Ensure BID at home and has dentures. She is complaining of her tuna flatbread wrap being too tough to eat at lunch today, but she is not wearing her dentures even though she has them with her. RD encouraged patient to wear dentures at all meals/snacks. She did not want to add dental soft restriction to her diet order, wants to change Ensure ordered from vanilla TID to chocolate BID. She says she is swallowing ok despite her PMH. She does not act like her appetite is great but she reports eating 3 meals per day. Will follow, see recs below. Dx: Underweight r/t decreased appetite, ETOH abuse AEB BMI 18. [facility] Therapy DATE: 12/24/16 Patient: LUANA MARVIN GARCIA Physician: GREGORIA Address: [address] [place] [address] Room/Bed: [address] [place] [address], Zip: [place] [address] Admit Date: 12/22/16 Date of : [birth year] Height: 5 8 Weight: 123 56 Intervention: Regular diet, chocolate Ensure BID, lyte replacement Monitoring, Evaluation and Goals: 1. PO intake > 50% of meals TID. 2. Supplement intake > 75% BID. 3. Gradual weight gain towards a healthy BMI range. 4. Improvement in labs (glucose, lytes WNL). Monitor: Per protocol, criteria to determine if above goals met Recommendations: 1. Please change diet to regular to liberalize food choices. Encourage oral intake and for patient to wear dentures at all meals/snacks so she can chew properly, since she does not want a dental soft restriction added to her diet order. Encourage 3 meals per day, snacks prn. 2. Changing Ensure to chocolate BID per patient request. 3. Replace lytes prn (Mg/Phos low). 4. Continue vitamins. 5. Please weigh q 3 days for monitoring purposes, as the patient is underweight. She previously has lost weight but reports weight gain recently, only 2 lbs away from usual body weight. 6. Encourage ETOH cessation and adequate fluid intake. RD will follow Mild nutrition risk Respectfully, Yvette Rivera, ANGELITA, LD [facility] cc: client file
--- NOTE | ~2016-12-22 | EKG ---
PATIENT: LUANA GARCIA UNIT #: [id number] Ventricular Rate: 108 BPM Atrial Rate: 108 BPM P-R Interval: 142 ms QRS Duration: 68 ms Q-T Interval: 372 ms QTC Calculation(Bezet): 498 ms P [place]: 27 degrees Calculated R [place]: -9 degrees Calculated T [place]: -64 degrees Diagnosis Line: Sinus tachycardia Diagnosis Line: ST and T wave abnormality, consider inferior Diagnosis Line: ischemia Diagnosis Line: Abnormal ECG Diagnosis Line: When compared with ECG of 12-OCT-2016 14:26, Diagnosis Line: QRS axis Shifted right Diagnosis Line: ST now depressed in Inferior leads Diagnosis Line: ST now depressed in Anterior leads Diagnosis Line: Diagnosis Line: Confirmed by GILMA LAMBERT MD ([id number]) on Diagnosis Line: 12/22/2016 4:33:30 PM INTERPRETING MD: FAUSTO CAPPS
--- NOTE | ~2016-12-22 | CO ---
Unit #: [id number] #: [id number] Patient: LUANA GARCIA [id number] [address] [address] [id number] I MR#: [id number] NAME: LUANA GARCIA ROOM: [facility] Age: 51 Sex: F Admission Date: 12/22/2016 : 1965 Attending Physician: Jing Orellana M.D. Primary Care Physician: Jeremy Benz M.D. CONSULTATION REPORT REASON FOR CONSULTATION Critical care management. CHIEF COMPLAINT Altered mental status. HISTORY OF PRESENT ILLNESS This is a 51-year-old female, with past medical history of alcohol abuse, hypertension, COPD, presented to the emergency room with the complaint of altered mental status. She was discharged from the hospital on October 13 with ulcerative esophagitis and the patient has been complaining of shortness of breath and was found to be hypertensive given IV fluid boluses, has responded to that. She denies any headache, blurry vision, no chest pain. REVIEW OF SYSTEMS Positive for pallor. No edema, no cyanosis, and no jaundice. The rest is per history of present illness. The rest of a twelve point review of systems has been reviewed and is negative. PAST MEDICAL HISTORY 1. Pancreatitis. 2. COPD. 3. History of gastroesophageal reflux disease. 4. Esophageal stricture. SOCIAL HISTORY One pack smoker per day, drinks alcohol. FAMILY HISTORY Positive for coronary artery disease. ALLERGIES Penicillin. MEDICATIONS 1. Enalapril 2. ProAir 3. Atropine 4. Prednisolone 5. Indomethacin Unit #: [id number] #: [id number] Patient: LUANA GARCIA 6. Pantoprazole 7. Lisinopril 8. Dulera REVIEW OF SYSTEMS Unable to obtain. PHYSICAL EXAMINATION VITAL SIGNS: Temperature 98, pulse 87, respiration 12, and blood pressure is 110/70. NEUROLOGIC: Awake, alert, and oriented x3. No neurologic deficit. HEENT: PERRLA. NECK: Supple. No jugular venous distention. CHEST: Bilateral air entry. Bilaterally mild rhonchi. GI: Nontender, soft. Bowel sounds are positive. EXTREMITIES: No edema. SKIN: No rash. LYMPHATICS: No lymphadenopathy. DIAGNOSTIC STUDIES Laboratory and imaging has been reviewed. ASSESSMENT/PLAN 1. Acute exacerbation of COPD. 2. Acute bronchitis. 3. Metabolic acidosis. 4. Alcohol abuse. 5. Sepsis. 6. Acute kidney injury. 7. Hypokalemia. 8. Hypomagnesemia. 9. Critically ill patient. Plan is to admit the patient, IV antibiotics, IV steroids, and IV fluids, and GI/DVT prophylaxis. The patient will be closely monitored. Please see orders for detailed plan. Thank you very much for this consultation. Dictated by... Montserrat Yan/cindy TD: 12/23/2016 09:26 JOB #: [id number] CONSULTATION REPORT Page 1 of 1 X Aarcely Stuart MD X CONSULTATION REPORT
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
[~2016-12-22 11:13] MED LIST changes: -ATROPINE 0.01%-10 ML OD; -CALCIUM 500 +1 EAC3 PO; -FOLIC ACID1 MG PO; -INDOMETHACIN50 MG PO; -LEVAQUIN PO; -MAG-OX 400400 M1 PO; -MULTIVITAMINS1 EAC2 PO; -POTASSIUM PHOS MC; -PREDNISONE10 M1
[2016-12-22 11:57] LABS: BASOPHIL# 0.1 X10e3 (0-0.3); BASOPHIL% 0.8 % (0-2.5); EOSINOPHIL% 0.3 % (0.0-7.0); HEMATOCRIT 39.5 % (35.0-45.0); HEMOGLOBIN 12.5 gm/dL (12.0-16.0); LYMPHOCYTE# 3.9 X10e3 (1.0-3.5); MEAN CELL VOLUME 109.1 FL (83-96); MEAN CORPUSCULAR HEMOGLOBIN 34.6 PG (28-34); MEAN CORPUSCULAR HGB CONC 31.7 g/dL (30-36); MONOCYTE# 0.3 X10e3 (0-1.0); MONOCYTE% 3.7 % (3.0-12.0); NEUTROPHIL# 3.1 X10e3 (1.5-7.1); NEUTROPHIL% 42.2 % (40-75); PLATELET COUNT 173 X10e3 (140-420); RED BLOOD COUNT 3.62 X10e (3.90-5.30); RED CELL DISTRIBUTION WIDTH 17.1 % (11.0-15.5); WHITE BLOOD COUNT 7.3 X10e3 (4.0-10.5)
[2016-12-22 12:00] LABS: DIFF IND YES
[2016-12-22 12:05] LABS: INR 1.3; PARTIAL THROMBOPLASTIN TIME 32.6 SECONDS (23.5-31.3); PROTHROMBIN TIME (PATIENT) 13.8 SECONDS (9.6-11.5)
[2016-12-22 12:08] LABS: ARTERIAL BLD GAS O2 SATURATION 96.9 % (90.0-100.0); ARTERIAL BLOOD GAS CARBOXY HB 0.3 %sat (0.0-9.0); ARTERIAL BLOOD GAS HCO3 7.2 mmol/L; ARTERIAL BLOOD GAS MET HB 1.3 %sat (0.0-2.0); ARTERIAL BLOOD GAS pH 7.325 (7.350-7.450)
[2016-12-22 12:16] LABS: ARTERIAL BLOOD GAS PCO2 13.8 mmHg (35.0-45.0)
[2016-12-22 12:17] LABS: ARTERIAL BLOOD GAS ART SITE RIGHT BRACHIAL; ARTERIAL BLOOD GAS DELIVERY NASAL CANNULA; ARTERIAL DRAW? YES
[2016-12-22 12:55] LABS: ANISOCYTOSIS SL; PLATELET ESTIMATE NORMAL (NORMAL)
[2016-12-22 14:32] LABS: POC - CKMB 2.6 ng/mL (0.0-7.9); POC - TROPONIN <0.05 ng/mL (<=0.05)
[2016-12-22 14:50] LABS: ALBUMIN SERUM 2.8 g/dL (3.5-5.0); ALKALINE PHOSPHATASE 58 U/L (32-92); ALT (SGPT) 16 U/L (10-40); AST (SGOT) 41 U/L (10-42); BILIRUBIN, DIRECT 0.2 mg/dL (0.0-0.2); BILIRUBIN,INDIRECT 1.1 mg/dL (0.0-0.9); BILIRUBIN,TOTAL 1.3 mg/dL (0.2-2.0); BLOOD UREA NITROGEN 29 mg/dL (9-23); BUN/CREATININE RATIO 18.12; CARBON DIOXIDE 12 mmol/L (22-31); CHLORIDE 97 mmol/L (100-111); CREATININE SERUM 1.6 mg/dL (0.6-1.4); GLOM FILT RATE Estimated 36.4 mL/min (>60); GLUCOSE FASTING 127 mg/dL (70-110); PROTEIN TOTAL SERUM 5.9 g/dL (6.0-8.3); SALICYLATE <4.0 mg/dL; SODIUM 134 mmol/L (135-145)
[2016-12-22 15:01] LABS: ACETAMINOPHEN <10 ug/mL; ALCOHOL BLOOD <5 mg/dL (0); CALCIUM SERUM 5.7 mg/dL (8.4-10.2); POTASSIUM 2.9 mmol/L (3.5-5.1)
[2016-12-22 15:06] LABS: PHOSPHOROUS 5.8 mg/dL (2.5-4.6)
[2016-12-22 15:10] LABS: MAGNESIUM 0.6 mg/dL (1.6-3.0)
[2016-12-22 15:59] LABS: POC - CKMB 6.9 ng/mL (0.0-7.9); POC - TROPONIN <0.05 ng/mL (<=0.05)
[2016-12-22 18:44] LABS: BILIRUBIN,TOTAL 1.5 mg/dL (0.2-2.0); CREATININE SERUM 1.5 mg/dL (0.6-1.4); GLOM FILT RATE Estimated 39.4 mL/min (>60); POTASSIUM 3.1 mmol/L (3.5-5.1); PROTEIN TOTAL SERUM 6.1 g/dL (6.0-8.3)
[2016-12-22 18:45] LABS: CALCIUM SERUM 5.9 mg/dL (8.4-10.2)
[2016-12-22 18:58] LABS: ARTERIAL BLOOD GAS HCO3 12.2 mmol/L; ARTERIAL BLOOD GAS MET HB 0.8 %sat (0.0-2.0); ARTERIAL BLOOD GAS pH 7.457 (7.350-7.450)
[2016-12-22 19:01] LABS: ARTERIAL BLOOD GAS ALLEN TEST NORMAL; ARTERIAL BLOOD GAS ART SITE LEFT RADIAL; ARTERIAL BLOOD GAS DELIVERY ROOM AIR; ARTERIAL BLOOD GAS PCO2 17.2 mmHg (35.0-45.0); ARTERIAL DRAW? YES
[2016-12-23 04:23] LABS: URINE SOURCE CLEAN CATCH
[2016-12-23 04:29] LABS: URINE APPEARANCE TURBID; URINE BLOOD 1+ (NEG); URINE COLOR DK YELLOW; URINE GLUCOSE NEG (NEG); URINE KETONE 1+ (NEG); URINE LEUKOCYTE ESTERASE 3+ (NEG); URINE NITRATE NEG (NEG); URINE PROTEIN TRACE (NEG); URINE SPECIFIC GRAVITY 1.016 (1.003-1.035)
[2016-12-23 04:30] LABS: CULTURE INDICATED? YES; URINE BACTERIA AUWI 4+ (NEGATIVE); URINE SQUAMOUS EPITHELIAL CELL FEW /[HPF]; UWBCS1 AUWI INNUM (0-5)
[2016-12-23 04:51] LABS: AMPHETAMINE NEG (NEG); BARBITURATES NEG (NEG); BENZODIAZEPINES NEG (NEG); COCAINE NEG (NEG); MARIJUANA NEG (NEG); OPIATES NEG (NEG); TRICYCLIC ANTIDEPRESSANTS NEG (NEG); U METHADONE NEG (NEG)
[2016-12-23 04:52] LABS: URINE BILIRUBIN NEG (NEG)
[2016-12-23 09:41] LABS: BASOPHIL% 0.4 % (0-2.5); EOSINOPHIL% 0.5 % (0.0-7.0); HEMATOCRIT 26.2 % (35.0-45.0); LYMPHOCYTE# 1.5 X10e3 (1.0-3.5); LYMPHOCYTE% 26.1 % (17.0-45.0); MEAN CORPUSCULAR HEMOGLOBIN 35.3 PG (28-34); MEAN CORPUSCULAR HGB CONC 33.4 g/dL (30-36); MEAN PLATELET VOLUME 9.8 FL (6.5-11.5); MONOCYTE# 0.4 X10e3 (0-1.0); MONOCYTE% 7.3 % (3.0-12.0); NEUTROPHIL# 3.7 X10e3 (1.5-7.1); NEUTROPHIL% 65.7 % (40-75); PLATELET COUNT 121 X10e3 (140-420); RED BLOOD COUNT 2.48 X10e (3.90-5.30); RED CELL DISTRIBUTION WIDTH 16.7 % (11.0-15.5); WHITE BLOOD COUNT 5.7 X10e3 (4.0-10.5)
[2016-12-23 09:42] LABS: HEMOGLOBIN 8.8 gm/dL (12.0-16.0); MEAN CELL VOLUME 105.7 FL (83-96)
[2016-12-23 09:43] LABS: DIFF IND NO
[2016-12-23 09:51] LABS: ARTERIAL BLD GAS O2 SATURATION 97.7 % (90.0-100.0); ARTERIAL BLOOD GAS ART SITE LEFT BRACHIAL; ARTERIAL BLOOD GAS CARBOXY HB 0.1 %sat (0.0-9.0); ARTERIAL BLOOD GAS HCO3 17.1 mmol/L; ARTERIAL BLOOD GAS MET HB 0.8 %sat (0.0-2.0); ARTERIAL DRAW? YES
[2016-12-23 10:04] LABS: ALBUMIN SERUM 2.5 g/dL (3.5-5.0); BILIRUBIN,TOTAL 1.3 mg/dL (0.2-2.0); BUN/CREATININE RATIO 21.66; CREATININE SERUM 1.2 mg/dL (0.6-1.4); GLOM FILT RATE Estimated 51.6 mL/min (>60); PROTEIN TOTAL SERUM 5.3 g/dL (6.0-8.3)
[2016-12-23 10:05] LABS: POTASSIUM 2.9 mmol/L (3.5-5.1)
[2016-12-23] MEDS ORDERED: PROAIR RESPICL90 MCG INH (10:05)
[2016-12-23 10:06] LABS: CALCIUM SERUM 5.7 mg/dL (8.4-10.2)
[2016-12-23] MEDS ORDERED: ATROPINE 0.01%-10 ML OD (10:09)
[2016-12-23] MEDS ORDERED: INDOMETHACIN50 MG PO (10:10)
[2016-12-23] MEDS ORDERED: PANTOPRAZOLE SO40 MG PO (10:12)
[2016-12-23] MEDS ORDERED: LISINOPRIL20 MG PO (10:14)
[2016-12-24 06:23] LABS: BASOPHIL% 0.1 % (0-2.5); HEMATOCRIT 22.3 % (35.0-45.0); HEMOGLOBIN 7.4 gm/dL (12.0-16.0); LYMPHOCYTE# 0.3 X10e3 (1.0-3.5); MEAN CELL VOLUME 105.1 FL (83-96); MEAN CORPUSCULAR HEMOGLOBIN 35.1 PG (28-34); MEAN CORPUSCULAR HGB CONC 33.4 g/dL (30-36); MEAN PLATELET VOLUME 9.3 FL (6.5-11.5); MONOCYTE# 0.1 X10e3 (0-1.0); MONOCYTE% 3.3 % (3.0-12.0); NEUTROPHIL# 2.8 X10e3 (1.5-7.1); NEUTROPHIL% 88.6 % (40-75); PLATELET COUNT 104 X10e3 (140-420); RED BLOOD COUNT 2.12 X10e (3.90-5.30); RED CELL DISTRIBUTION WIDTH 16.4 % (11.0-15.5); WHITE BLOOD COUNT 3.2 X10e3 (4.0-10.5)
[2016-12-24 06:28] LABS: DIFF IND YES
[2016-12-24 06:50] LABS: ANISOCYTOSIS SL; PLATELET ESTIMATE DECREASED (NORMAL)
[2016-12-24 07:57] LABS: ALBUMIN SERUM 2.2 g/dL (3.5-5.0); BILIRUBIN,TOTAL 0.2 mg/dL (0.2-2.0); BUN/CREATININE RATIO 17.77; CALCIUM SERUM 6.4 mg/dL (8.4-10.2); CREATININE SERUM 0.9 mg/dL (0.6-1.4); MAGNESIUM 1.3 mg/dL (1.6-3.0); PROTEIN TOTAL SERUM 4.7 g/dL (6.0-8.3)
[2016-12-24 08:02] LABS: PHOSPHOROUS 0.6 mg/dL (2.5-4.6); POTASSIUM 4.4 mmol/L (3.5-5.1)
[2016-12-25 06:33] LABS: HEMATOCRIT 21.6 % (35.0-45.0); HEMOGLOBIN 7.2 gm/dL (12.0-16.0); MEAN CORPUSCULAR HEMOGLOBIN 35.2 PG (28-34); MEAN CORPUSCULAR HGB CONC 33.2 g/dL (30-36); MEAN PLATELET VOLUME 9.4 FL (6.5-11.5); RED BLOOD COUNT 2.04 X10e (3.90-5.30); RED CELL DISTRIBUTION WIDTH 17.2 % (11.0-15.5)
[2016-12-25 07:07] LABS: WHITE BLOOD COUNT 7.7 X10e3 (4.0-10.5)
[2016-12-25 07:28] LABS: CALCIUM SERUM 7.6 mg/dL (8.4-10.2); CREATININE SERUM 0.8 mg/dL (0.6-1.4); GLOM FILT RATE Estimated 84.2 mL/min (>60); MAGNESIUM 1.3 mg/dL (1.6-3.0); PHOSPHOROUS 1.4 mg/dL (2.5-4.6); POTASSIUM 4.6 mmol/L (3.5-5.1)
[2016-12-25] MEDS ORDERED: PREDNISONE10 M1 ×2 (12:05→12:07)
[2016-12-25] MEDS ORDERED: MULTIVITAMINS1 EAC2 PO (12:09)
[2016-12-25] MEDS ORDERED: PROTONIX PO (12:10)
[2016-12-25] MEDS ORDERED: LEVAQUIN PO (12:11)
[2016-12-25] MEDS ORDERED: CALCIUM 500 +1 EAC3 PO (12:12)
[2016-12-25] MEDS ORDERED: POTASSIUM PHOS MC (12:14)
[2016-12-25] MEDS ORDERED: FOLIC ACID1 MG PO (12:17)
[2016-12-25] MEDS ORDERED: MAG-OX 400400 M1 PO (12:18)
== END 2016-12-25 19:34 | disposition home health service (06) | DRG 640 ==
LOC: CED 11:13 → C3A PCU 17:47 → CEDOF 17:47 → CICCU2 12-23 08:36 → C3A PCU 12-23 22:00
PROVIDERS: Emergency Medicine; Internal Medicine
DX: E87.2 Acidosis (principal); J96.00 Acute respiratory failure, unspecified whether with hypoxia or hypercapnia; E86.0 Dehydration; N17.9 Acute kidney failure, unspecified; D61.818 Other pancytopenia; E43 Unspecified severe protein-calorie malnutrition; I95.9 Hypotension, unspecified; J44.0 Chronic obstructive pulmonary disease with (acute) lower respiratory infection; K22.10 Ulcer of esophagus without bleeding; J44.1 Chronic obstructive pulmonary disease with (acute) exacerbation; N39.0 Urinary tract infection, site not specified; Z68.1 Body mass index [BMI] 19.9 or less, adult; E83.42 Hypomagnesemia; E87.6 Hypokalemia; J44.9 Chronic obstructive pulmonary disease, unspecified; K21.9 Gastro-esophageal reflux disease without esophagitis; F17.210 Nicotine dependence, cigarettes, uncomplicated; Z88.0 Allergy status to penicillin; F10.10 Alcohol abuse, uncomplicated; J20.9 Acute bronchitis, unspecified; T73.0XXA Starvation, initial encounter; B96.20 Unspecified Escherichia coli [E. coli] as the cause of diseases classified elsewhere; E83.51 Hypocalcemia; E83.39 Other disorders of phosphorus metabolism
CPT/HCPCS: 36415; 36600; 70450; 71010; 80048; 80053; 80076; 80307; 81003; 82140; 82330; 82553; 82803; 82947; 83036; 83605; 83735; 84100; 84132; 84134; 84484; 85025; 85027; 85610; 85730; 87040; 87086; 87088; 87186; 93005; 94640; 94760; 94761; 97110; 97116; 97163; 97167; 97530; 97535; 99285; C9113; G0480; G8987-GO; G8988-GO; G8989-GO; J0610; J1650; J1956; J2930; J3411; J3475; J7042

== ENCOUNTER 2017-01-14 17:23 | Emergency (ER) | payer OTHER ==
--- NOTE | ~2017-01-14 | CR77 ---
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 [place], [place] [address] [id number] E MR#: [id number] Acc #: [id number] NAME: LUANA GARCIA : 1965 SEX: F STUDY DATE/TIME: 01/14/2017 19:59 UNIT: [facility] ROOM: STUDY DESCRIPTION: CR Clavicle Comp Lt Attending Physician: Julia Yusuf A.P.R.N. Ordering Physician: Julia Yusuf A.P.R.N. Primary Care Physician: Jeremy Benz M.D. MEDICAL IMAGING REPORT This report is preliminary unless electronic signature is present EXAM Left clavicle 01/14 INDICATIONS Pain after fall yesterday in the shoulder. FINDINGS Two views of the clavicle were obtained. There is a mid shaft clavicle fracture. The distal fragment is displaced by up to 1 shaft width in the inferior direction. There is some mild widening of the AC joint space which could reflect an acute separation. IMPRESSION Midshaft clavicle fracture with widening of the AC joint which could be acute or chronic. Dictated by... Kris Goldberg Jr., M.D. THIS IS AN ELECTRONICALLY VERIFIED REPORT Kris Goldberg Jr., M.D. at 01/15/2017 10:04 AM STIVEN/bernice TD: 01/15/2017 08:28 JOB #: [id number] MEDICAL IMAGING REPORT Page 1 of 1 COPY
--- NOTE | ~2017-01-14 | CR229 ---
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 [place], [place] [address] [id number] E MR#: [id number] Acc #: [id number] NAME: LUANA GARCIA : 1965 SEX: F STUDY DATE/TIME: 01/14/2017 19:57 UNIT: [facility] ROOM: STUDY DESCRIPTION: CR Shoulder Min 2 View Lt Attending Physician: Julia Yusuf A.P.R.N. Ordering Physician: Julia Yusuf A.P.R.N. Primary Care Physician: Jeremy Benz M.D. MEDICAL IMAGING REPORT This report is preliminary unless electronic signature is present EXAM Left shoulder 01/14 INDICATIONS Shoulder pain after fall yesterday. FINDINGS Three views of the left shoulder were obtained. There is a midshaft clavicle fracture with inferior displacement of the distal fragment by 1 shaft width. There is some widening of the AC joint space which could be acute or chronic. The AC joint is by about 8 mm. No glenohumeral dislocation is seen. IMPRESSION Midshaft clavicle fracture. Widening of the AC joint could be acute or chronic. No glenohumeral dislocation. Dictated by... Kris Goldberg Jr., M.D. THIS IS AN ELECTRONICALLY VERIFIED REPORT Kris Goldberg Jr., M.D. at 01/15/2017 10:04 AM STIVEN/bernice TD: 01/15/2017 08:27 JOB #: [id number] MEDICAL IMAGING REPORT Page 1 of 1 COPY
--- NOTE | ~2017-01-14 | CR21 ---
[facility] A Service of [facility] RADIOLOGY TEXT RESULTS PATIENT: LUANA GARCIA LOCATION: [facility] : 61 UNIT #: [id number] AGE: [address]: Julia Yusuf APRN CARBON DIOXIDE OPERATOR SEX: F ORDER DR: [id number] [facility] [address] [place], [place] [address] [id number] E MR#: [id number] Acc #: [id number] NAME: LUANA GARCIA : 1965 SEX: F STUDY DATE/TIME: 01/14/2017 21:20 UNIT: [facility] ROOM: STUDY DESCRIPTION: CR Ankle Min 3 Views Rt Attending Physician: Julia Yusuf A.P.R.N. Ordering Physician: Julia Yusuf A.P.R.N. Primary Care Physician: Jeremy Benz M.D. MEDICAL IMAGING REPORT This report is preliminary unless electronic signature is present EXAM Right ankle, 01/14/2017 INDICATION 51-year-old female with anterior ankle pain for the past week and a half. Surgery in May of last year. TECHNIQUE 3 views of the right ankle COMPARISON 08/25/2016 FINDINGS The patient is status post screw and plate fracture repair of a distal tibial fracture and screw repair of a distal fibular fracture. The bones are osteoporotic. Surgical hardware appears intact and unchanged for technical factors. No acute fracture. There are degenerative changes in the midfoot and hindfoot. Faint lucent fracture lines through the distal tibia and fibula persist. There has been some degree of callus formation since the prior study to a mild degree, probably best demonstrated on the oblique image. IMPRESSION 1. Postop changes of a trimalleolar fracture repair procedure. Surgical hardware not significantly change from the prior study and appears intact. 2. Probable development of some mild callus formation associated with fracture lines in the distal tibia. 3. No acute-appearing fracture. 4. 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 [facility] A Service [facility] RADIOLOGY TEXT RESULTS PATIENT: LUANA GARCIA LOCATION: [facility] : 61 UNIT #: [id number] AGE: [address]: Julia Yusuf APRN CARBON DIOXIDE OPERATOR SEX: F ORDER DR: Dictated by... Alphonso Borjas M.D. THIS IS AN ELECTRONICALLY VERIFIED REPORT Alphonso Borjas M.D. at 01/15/2017 2:34 PM Liz TD: 01/15/2017 09:18 JOB #: [id number] MEDICAL IMAGING REPORT Page 1 of 1 COPY
[~2017-01-14 17:23] MED LIST changes: +ATROPINE 0.01%-10 ML OD; +CALCIUM 500 +1 EAC3 PO; +FOLIC ACID1 MG PO; +INDOMETHACIN50 MG PO; +LEVAQUIN PO; +MAG-OX 400400 M1 PO; +MULTIVITAMINS1 EAC2 PO; +POTASSIUM PHOS MC; +PREDNISONE10 M1
== END 2017-01-14 22:50 | disposition home or self-care (01) ==
LOC: CED 17:23 → CFTX 17:23
DX: S42.022A Displaced fracture of shaft of left clavicle, initial encounter for closed fracture (principal); S93.401A Sprain of unspecified ligament of right ankle, initial encounter; F17.200 Nicotine dependence, unspecified, uncomplicated; Z88.0 Allergy status to penicillin; W01.0XXA Fall on same level from slipping, tripping and stumbling without subsequent striking against object, initial encounter; Y92.9 Unspecified place or not applicable
CPT/HCPCS: 73000; 73030; 73610; 99284

== ENCOUNTER → 2017-02-02 | Outpatient (CLI) | payer OTHER ==
--- NOTE | ~2017-02-02 | CR77 ---
[facility] A Service of [facility] RADIOLOGY TEXT RESULTS PATIENT: LUANA GARCIA LOCATION: [facility] : 61 UNIT #: [id number] AGE: [address]: Liberty Starr MD SEX: F ORDER DR: [id number] [facility] [address] [place], [place] [address] [id number] O MR#: [id number] Acc #: [id number] NAME: LUANA GARCIA : 1965 SEX: F STUDY DATE/TIME: 02/02/2017 12:40 UNIT: [facility] ROOM: STUDY DESCRIPTION: CR Clavicle Comp Lt Attending Physician: Liberty Starr M.D. Referring Physician: Liberty Starr M.D. Ordering Physician: Liberty Starr M.D. Primary Care Physician: Jeremy Benz M.D. MEDICAL IMAGING REPORT This report is preliminary unless electronic signature is present EXAM Left clavicle, 2 views, 02/02/2017. HISTORY Left clavicle pain for 2 weeks. Followup left clavicle fracture, status post fall 01/13/2017. FINDINGS Two views of the left clavicle demonstrate healing fracture through the mid shaft of the left clavicle compared with 01/14/2017. No new fracture is seen. The bones are normally mineralized. The left glenohumeral and acromioclavicular joints are intact. IMPRESSION Healing fractures through the mid portion of the left clavicle. Dictated by... Prieto Angela M.D. THIS IS AN ELECTRONICALLY VERIFIED REPORT Prieto Angela M.D. at 02/03/2017 2:14 PM GREG/marilu TD: 02/03/2017 00:36 JOB #: [id number] MEDICAL IMAGING REPORT Page 1 of 1 COPY
== END | disposition home or self-care (01) ==
LOC: CRAD 12:15
DX: M25.512 Pain in left shoulder (principal); S42.022D Displaced fracture of shaft of left clavicle, subsequent encounter for fracture with routine healing
CPT/HCPCS: 73000

== ENCOUNTER → 2017-02-18 | Outpatient (CLI) | payer OTHER ==
--- NOTE | ~2017-02-18 | CR63 ---
[facility] A Service [facility] RADIOLOGY TEXT RESULTS PATIENT: LUANA GARCIA LOCATION: [facility] : 61 UNIT #: [id number] AGE: [address]: Jeremy Benz MD SEX: F ORDER DR: [id number] [place] [id number] O MR#: [id number] Acc #: [id number] NAME: LUANA GARCIA : 1965 SEX: F STUDY DATE/TIME: 02/18/2017 09:49 UNIT: [facility] ROOM: STUDY DESCRIPTION: CR Chest 2 View Attending Physician: Jeremy Benz M.D. Referring Physician: Jeremy Benz M.D. Ordering Physician: Jeremy Benz M.D. Primary Care Physician: Jeremy Benz M.D. MEDICAL IMAGING REPORT This report is preliminary unless electronic signature is present. EXAM Chest 2 views, 02/18/2017 0949 hours HISTORY 51-year-old with history of smoking for evaluation of unexplained weight loss since ankle surgery June 2016. COMPARISON 12/23/2016 FINDINGS Upright PA and lateral views of the chest demonstrate normal cardiac, mediastinal and hilar contours. Lungs are hyperinflated with calcified granulomatous change. There are no acute pulmonary densities or pleural effusions. IMPRESSION Stable pulmonary hyperinflation. There are benign calcified granulomatous changes. No acute cardiopulmonary findings. Dictated by... Kennedi Pedraza M.D. THIS IS AN ELECTRONICALLY VERIFIED REPORT Kennedi Pedraza M.D. at 02/19/2017 9:11 AM SHAYLA/yaima TD: 02/18/2017 22:26 JOB #: [id number] MEDICAL IMAGING REPORT [facility] A Service [facility] RADIOLOGY TEXT RESULTS PATIENT: LUANA GARCIA LOCATION: [facility] : 61 UNIT #: [id number] AGE: [address]: Jeremy Benz MD SEX: F ORDER DR: Page 1 of 1
== END | disposition home or self-care (01) ==
LOC: SRAD 09:42
DX: R63.4 Abnormal weight loss (principal); F17.200 Nicotine dependence, unspecified, uncomplicated; R93.8 Abnormal findings on diagnostic imaging of other specified body structures
CPT/HCPCS: 71020

== ENCOUNTER → 2017-03-03 | Outpatient (CLI) | payer OTHER ==
--- NOTE | ~2017-03-03 | CR21 ---
[facility] A Service of [facility] RADIOLOGY TEXT RESULTS PATIENT: LUANA GARCIA LOCATION: [facility] : 61 UNIT #: [id number] AGE: [address]: Liberty Starr MD SEX: F ORDER DR: [id number] [facility] [address] [place], [place] [address] [id number] O MR#: [id number] Acc #: [id number] NAME: LUANA GARCIA : 1965 SEX: F STUDY DATE/TIME: 03/03/2017 12:26 UNIT: [facility] ROOM: STUDY DESCRIPTION: CR Ankle Min 3 Views Rt Attending Physician: Liberty Starr M.D. Referring Physician: Liberty Starr M.D. Ordering Physician: Liberty Starr M.D. Primary Care Physician: Jeremy Benz M.D. MEDICAL IMAGING REPORT This report is preliminary unless electronic signature is present EXAM Right ankle 3 views 03/03/2017 HISTORY Right ankle pain status post fall 1 year ago with a fracture of right ankle, follow up. Right ankle pain since January 2017. FINDINGS Three views of the right ankle demonstrate no acute fracture. Surgical plate and screws traverses old healed fracture of the distal tibia. Surgical screw also traverses the distal fibula. The bones appear in anatomic alignment and no acute fracture is seen. The bones are osteopenic. There is no soft tissue abnormality. IMPRESSION No significant interval change compared with 01/14/2017. Dictated by... Prieto Angela M.D. THIS IS AN ELECTRONICALLY VERIFIED REPORT Prieto Angela M.D. at 03/05/2017 7:21 AM GREG/mariya TD: 03/04/2017 14:03 JOB #: [id number] MEDICAL IMAGING REPORT Page 1 of 1 COPY
--- NOTE | ~2017-03-03 | CR77 ---
[facility] A Service of [facility] RADIOLOGY TEXT RESULTS PATIENT: LUANA GARCIA LOCATION: [facility] : 61 UNIT #: [id number] AGE: [address]: Liberty Starr MD SEX: F ORDER DR: [id number] [facility] [address] [place], [place] [address] [id number] O MR#: [id number] Acc #: [id number] NAME: LUANA GARCIA : 1965 SEX: F STUDY DATE/TIME: 03/03/2017 12:26 UNIT: [facility] ROOM: STUDY DESCRIPTION: CR Clavicle Comp Lt Attending Physician: Liberty Starr M.D. Referring Physician: Liberty Starr M.D. Ordering Physician: Liberty Starr M.D. Primary Care Physician: Jeremy Benz M.D. MEDICAL IMAGING REPORT This report is preliminary unless electronic signature is present EXAM Left clavicle 2 views 03/03/2017 HISTORY Left clavicle pain for 6 weeks. Follow up left clavicle fracture status post fall 01/13/2017. FINDINGS Two views of the left clavicle demonstrate healing fractures through the midshaft of the left clavicle compared with 02/02/2017. Only minimal callus formation is seen about the fracture site and the findings are not significantly changed compared with 02/02/2017. No new fracture is identified. The left glenohumeral and acromioclavicular joints are intact. IMPRESSION No significant interval change compared with 02/02/2017. Dictated by... Prieto Angela M.D. THIS IS AN ELECTRONICALLY VERIFIED REPORT Prieto Angela M.D. at 03/05/2017 7:21 AM GREG/mariya TD: 03/04/2017 13:52 JOB #: [id number] MEDICAL IMAGING REPORT Page 1 of 1 COPY
== END | disposition home or self-care (01) ==
LOC: CRAD 12:11
DX: S42.002A Fracture of unspecified part of left clavicle, initial encounter for closed fracture (principal); S82.891A Other fracture of right lower leg, initial encounter for closed fracture
CPT/HCPCS: 73000; 73610